=== PATIENT | female | born 1990 | race Caucasian/White ===

== ENCOUNTER 2025-02-28 13:36 | Emergency (ER) | payer MEDICAID ==
[~2025-02-28] VITALS: Ht 157.5 cm; Wt 109.0 kg
--- NOTE | 2025-02-28 13:42 | Physician Documentation ---
History of Present Illness ~ Stated Complaint: INGESTION ERROR Time Seen by MD: 13:41 HPI Year old female presents to the ED with a complaint of accidental ingestion of 150 mg of Zoloft states she took her normal prescription this morning and accidentally took another 150 mg this afternoon Vitals are with a normal limits patient is a little anxious her blood pressure in his limited normal limits and she is not tachycardic denies any chest Medication Reconciliation Allergies: Coded Allergies: nitrofurantoin (Verified Allergy, Severe, hives, 02/28/25) amoxicillin (Verified Allergy, Unknown, 01/25/25) promethazine (Verified Allergy, Unknown, 01/25/25) Past Medical History Past Medical History: Migraine Past Surgical History: noncontributory Drug Use: none Lives In: Home Occupation: employed Review of Systems All Other Systems at this time: Reviewed and Negative ROS As stated above in the HPI, otherwise all systems are reviewed and negative. Physical Exam Physical Exam General: Alert, no apparent distress. HEENT: PERRL, EOMI, no injection, moist mucous membranes. Neck: Full range of motion. Respiratory: Lungs clear, no respiratory distress. Chest: No accessory muscle use. Cardiovascular: Regular rate and rhythm, no murmurs. Gastrointestinal: Soft, nontender, nondistended. Bowels sounds present. Extremities: Normal range of motion, no deformity. Neurologic: Oriented x4. Psychiatric: Normal mood and affect. Skin: Normal color, warm and dry. No edema, no ecchymosis. Progress Results/Orders Results/Orders Vital Signs 02/28/25 02/28/25 13:54 14:13 Temp 98.1 Pulse 71 Resp 16 16 B/P (MAP) 159/78 Pulse Ox 98 O2 Flow Rate 0 Medical Decision Making Findings Patient presents acutely stable hemodynamically stable shows no signs of serotonin syndrome. I do not suspect that an additional dose would lead to emergent concerns in his regard. She does have underlying anxiety but at this time I am going to discharge her Differential Dx:Considerations: Include: Alcohol abuse, Anxiety, Bipolar disorder, Conversion disorder, Delirium, Depression, Drug Overdose-Accidental, Drug Overdose-Intentional, Encephalopathy, Hallucinations, Homicidal, Liver failure, Panic disorder, Personality disorder, Renal failure, Respiratory failure, Schizophrenia, Substance abuse, Suicidal attempt, Suidical gesture, Other Departure Disposition: HOME / SELF CARE / HOMELESS Impression: Primary Impression: Accidental drug ingestion Condition: Improved Additional Instructions: I to take your medications as directed or prescribed going forward. Your presentation was reassuring follow up for any worsening symptoms Referrals: NO PRIMARY CARE PROVIDER (PCP) Signature Scribe Signature: t Attestation: Scribed for Emergency,Department by Vinicius Morgan - [facility] . 02/28/25 13:42 VINICIUS MORGAN NP Feb 28, 2025 13:42 ARAM BAUM MD Mar 01, 2025 06:20
[2025-02-28 13:54] VITALS: BP 159/78; PULSE 71; TEMP 98.1; O2SAT 98
[2025-02-28 14:13] VITALS: RESP 16
== END 2025-02-28 14:43 | disposition home or self-care (01) ==
LOC: ER 13:36
DX: T43.221A Poisoning by selective serotonin reuptake inhibitors, accidental (unintentional), initial encounter (principal); G43.909 Migraine, unspecified, not intractable, without status migrainosus; Z88.0 Allergy status to penicillin; Z88.1 Allergy status to other antibiotic agents; Y92.89 Other specified places as the place of occurrence of the external cause
CPT/HCPCS: 99283